=== PATIENT | male | born 1970 | race Hispanic/Latino ===

== ENCOUNTER 2025-01-22 17:42 | Emergency (ER) | payer BC ==
[~2025-01-22] VITALS: Ht 182.9 cm; Wt 98.4 kg
[2025-01-22 17:44] VITALS: BP 152/77; PULSE 105; RESP 18; TEMP 97.7
--- NOTE | 2025-01-22 18:06 | HMCIMG ---
EXAM: Chest radiograph 1 view HISTORY: Chest pain COMPARISON: None FINDINGS: Minimal bibasilar airspace disease. No large pleural effusion or pneumothorax. Normal cardiac silhouette. No overt congestion. Degenerative change. IMPRESSION: Minimal bibasilar airspace disease most likely representing atelectasis /[facility]
--- NOTE | 2025-01-22 19:07 | NUR ---
PT CALLED, NO ANSWER
--- NOTE | 2025-01-22 19:20 | NUR ---
PATIENT CALLED, NO ANSWER
--- NOTE | 2025-01-22 19:50 | NUR ---
NO ANSWER WHEN PATIENT CALLED FROM [facility]
--- NOTE | 2025-01-23 05:44 | EKG ---
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
== END 2025-01-22 19:50 | disposition left against medical advice (07) ==
LOC: EDH 17:42
DX: R07.89 Other chest pain (principal); R00.2 Palpitations; Z53.21 Procedure and treatment not carried out due to patient leaving prior to being seen by health care provider
CPT/HCPCS: 71045; 93005; 99281; 99283